=== PATIENT | female | born 1955 | race Caucasian/White ===

== ENCOUNTER 2023-10-18 13:12 | Emergency (ER) | payer MEDICARE, BC ==
[2023-10-18] MEDS: Bacitracin Oint 1 GM U/D Packet TOP ONE (16:09)
[2023-10-18] MEDS: Diphtheria,Pertussis(Acell),Tetanus Vaccine 0.5 ML Syringe IM ONE (16:10)
== END 2023-10-18 16:13 | disposition home or self-care (01) ==
LOC: JP.ED 13:12
DX: S61.041A Puncture wound with foreign body of right thumb without damage to nail, initial encounter (principal); Z23 Encounter for immunization; E78.00 Pure hypercholesterolemia, unspecified; Z88.8 Allergy status to other drugs, medicaments and biological substances; Z79.899 Other long term (current) drug therapy; Z87.891 Personal history of nicotine dependence; W45.8XXA Other foreign body or object entering through skin, initial encounter
CPT/HCPCS: 90471; 90715; 99282; 99283-25

== ENCOUNTER 2024-10-06 06:21 | Day surgery (SDC) | payer MEDICARE, BC ==
[2024-10-06] MEDS: Sodium Chloride 0.9% 10 ML Syringe FLUSH ONE (07:20)
== END 2024-10-06 08:33 | disposition home or self-care (01) ==
LOC: JP.SDS 06:21
PROVIDERS: ATTEND Ophthalmology
DX: H25.11 Age-related nuclear cataract, right eye (principal); E78.5 Hyperlipidemia, unspecified; K21.9 Gastro-esophageal reflux disease without esophagitis; Z80.0 Family history of malignant neoplasm of digestive organs
CPT/HCPCS: 66984; V2632

== ENCOUNTER → 2024-10-20 | Day surgery (SDC) | payer MEDICARE, BC ==
[~2024-10-20] MED LIST: Sodium Chloride 0.9% 10 ML Syringe FLUSH PRN
== END ==
LOC: JP.SDS 06:30
PROVIDERS: ATTEND Ophthalmology
DX: H25.12 Age-related nuclear cataract, left eye (principal); K21.9 Gastro-esophageal reflux disease without esophagitis; J45.909 Unspecified asthma, uncomplicated; F17.200 Nicotine dependence, unspecified, uncomplicated
CPT/HCPCS: 00142-QZ; V2632